=== PATIENT | male | born 1980 | race Caucasian/White ===

== ENCOUNTER 2020-02-13 20:50 | Emergency (ER) | payer OTHER ==
[2020-02-13] MEDS ORDERED: KETOROLAC 30 MG/ML INJ ONE (21:58)
[2020-02-13] MEDS ORDERED: ONDANSETRON 4 MG/2 ML VIAL ONE (21:58)
[2020-02-13] MEDS ORDERED: NA CHLORIDE 0.9% 1,000 ML ONE (21:59)
[2020-02-13 22:01] LABS: Absolute Lymphocytes (CBC) 2.3 K/uL (0.7-4.9); Hematocrit 43.4 % (39.6-49.0); Lymphocytes % 26.4 % (15.3-44.8); MPV 8.2 fL (7.6-11.3); RBC Red Blood Cell Count 5.42 M/uL (4.33-5.43)
--- NOTE | 2020-02-13 22:02 | RAD REPORT ---
EXAM DESCRIPTION: CT - Head Brain Wo Cont - 02/13/2020 9:55 pm CLINICAL HISTORY: Headache COMPARISON: None. TECHNIQUE: Computed axial tomography of the head was obtained. Unenhanced and enhanced images obtain ed. 50 cc Isovue-[address] scans are performed using dose optimization technique as appropriate and may include automated exposure control or mA/KV adjustment according to patient size. FINDINGS: An intracranial bleed is not seen . The ventricles are normal in caliber. No extra-axial fluid collection is noted. No abnormal enhancement seen Fluid within the sinuses/ mastoids is not seen. IMPRESSION: No acute intracranial abnormality is seen. If patient's symptoms persist MRI of the bra in would be recommended.
[2020-02-13 22:17] LABS: Albumin 3.8 g/dL (3.4-5.0); Bilirubin Total 0.2 mg/dL (0.2-1.0); C-Reactive Protein 8.41 mg/L (<3.00); Potassium 3.6 mmol/L (3.5-5.1); Protein, Total 7.6 g/dL (6.4-8.2)
--- NOTE | 2020-02-13 22:34 | ER ---
Nurse's Notes [facility] Name: Richard Freitas Age: 40 yrs Sex: Male : 1980 Arrival Date: 02/13/2020 Time: 20:54 Bed 20 Private MD: Diagnosis: Headache;Essential (primary) hypertension Presentation: 02/12 21:13 Chief complaint: Patient states: Right sided GARZA since Monday getting progressively ll1 worse. Slight nasal congestion. Has been taking allergy medicine, hasn't helped much. Coronavirus screen: Proceed with normal triage. Patient denies a cough. Patient denies shortness of breath or difficulty breathing. Patient denies measured and/or subjective temperature greater than 100.4F prior to today's visit. Patient denies travel on a cruise ship or to a country the [facility] currently lists as an affected area. Patient denies contact with known and/or suspected case of COVID-19. Ebola Screen: Patient denies travel to an Ebola-affected area in the 21 days before illness onset. Initial Sepsis Screen: Does the patient meet any 2 criteria? No. Patient's initial sepsis screen is negative. Risk Assessment: Do you want to hurt yourself or someone else? Patient reports no desire to harm self or others. Onset of symptoms was February 11, 2020. 21:13 Method Of Arrival: Ambulatory ll1 21:13 Acuity: PRABHJOT 3 ll1 22:00 Initial Sepsis Screen: Does the patient have a suspected source of infection? No. vc Patient's initial sepsis screen is negative. Triage Assessment: 22:00 Headache History: The patient has had previous headaches and this one is more severe vc than previous episodes. General: Appears in no apparent distress. uncomfortable, Behavior is calm, cooperative, appropriate for age. Pain: Also complains of photophobia. Pain: Complains of pain in right eye and right hoahaoism. Historical: - Allergies: 21:15 PENICILLINS; ll1 - PMHx: 21:15 Hypertension; ll1 - PSHx: 21:15 None; ll1 - Immunization history:: Adult Immunizations up to date. - Social history:: Smoking status: Patient denies any tobacco usage or history of. Patient/guardian denies using alcohol, street drugs, tobacco products. - Family history:: not pertinent. Screenin:23 Abuse screen: Denies threats or abuse. Nutritional screening: No deficits noted. Tuberculosis screening: No symptoms or risk factors identified. Fall Risk None identified. Assessment: 21:20 General: Appears in no apparent distress. Behavior is calm, cooperative. Pain: Complains of pain in forehead and right hoahaoism Pain does not radiate. Pain currently is 4 out of 10 on a pain scale. Quality of pain is described as dull, sharp, Pain began 2-3 days ago. Is continuous, Alleviated by nothing. Aggravated by looking down. Neuro: Level of Consciousness is awake, alert, Oriented to person, place, time, situation, Geneticist are equal bilaterally Moves all extremities. Speech is normal, Facial symmetry appears normal. Cardiovascular: Heart tones S1 S2 present Capillary refill < 3 seconds Patient's skin is warm and dry. Respiratory: Airway is patent Respiratory effort is even, unlabored, Respiratory pattern is regular, symmetrical, Breath sounds are clear. GI: No signs and/or symptoms were reported involving the gastrointestinal system. : No signs and/or symptoms were reported regarding the genitourinary system. EENT: No signs and/or symptoms were reported regarding the EENT system. Denies blurred vision nasal congestion, nasal discharge. Derm: No signs and/or symptoms reported regarding the dermatologic system. Musculoskeletal: No signs and/or symptoms reported regarding the musculoskeletal system. 22:12 Reassessment: Patient appears in no apparent distress at this time. Patient and/or vc family updated on plan of care and expected duration. Pain level reassessed. 22:56 Reassessment: Patient appears in no apparent distress at this time. Patient and/or vc family updated on plan of care and expected duration. Pain level reassessed. Patient states feeling better. Patient states symptoms have improved. Vital Signs: 21:13 BP 153 / 104; Pulse 89; Resp 18; Pulse Ox 96% ; Pain 4/10; ll1 22:00 BP 145 / 106; Pulse 70; Resp 18; Pulse Ox 95% on R/A; vc 22:59 BP 140 / 94; Pulse 72; Resp 16; Pulse Ox 95% on R/A; vc ED Course: 20:54 Patient arrived in ED. cl3 21:07 Edmond Worthy MD is Attending Physician. dary 21:12 Soco Wadsworth, RN is Primary Nurse. 21:15 Triage completed. ll1 21:16 Arm band placed on Patient placed in an exam room, on a stretcher. ll1 21:23 Patient has correct armband on for positive identification. Bed in low position. Call light in reach. 21:40 Inserted saline lock: 20 gauge in right antecubital area, using aseptic technique. vc 21:53 CT Head Brain wo Cont In Process Unspecified. EDMS 22:12 Primary Nurse role handed off by Soco Wadsworth, RN vc 22:12 Radha Lr RN is Primary Nurse. vc 22:33 Marcos Ferrer MD is Referral Physician. dary 22:55 No provider procedures requiring assistance completed. vc 23:08 IV discontinued, intact, bleeding controlled, No redness/swelling at site. Pressure vc dressing applied. Administered Medications: 22:10 Drug: Zofran (Ondansetron) 4 mg Route: IVP; Site: right antecubital; vc 22:54 Follow up: Response: No adverse reaction vc 22:11 Drug: NS 0.9% 1000 ml Route: IV; Rate: 1 bolus; Site: right antecubital; vc 23:10 Follow up: IV Status: Completed infusion; IV Intake: 1000ml vc 22:11 Drug: TORadol 30 mg Route: IVP; Site: right antecubital; vc 22:54 Follow up: Response: No adverse reaction; Pain is decreased vc Intake: 23:10 IV: 1000ml; Total: 1000ml. vc Outcome: 22:33 Discharge ordered by . dary 22:59 Condition: good vc 23:08 Discharge instructions given to patient, Instructed on discharge instructions, follow vc up and referral plans. no drinking with medication, no driving heavy equipment, medication usage, Demonstrated understanding of instructions, follow-up care, medications, Prescriptions given X 2. 23:09 Discharged to home ambulatory. vc 23:09 Patient left the ED. vc Signatures: Dispatcher [employer] ROCKYSD Edmond Worthy MD MD cha Lewis, Charde cl3 Radah Lr, SADIA MCCULLOUGH vc Soco Wadsworth RN RN ah Lewis, Lynsay, RN RN ll1
--- NOTE | 2020-02-13 22:35 | EDPHYS ---
Physician Documentation [facility] Name: Richard Freitas Age: 40 yrs Sex: Male : 1980 Arrival Date: 02/13/2020 Time: 20:54 Bed 20 Private MD: ED Physician Edmond Worthy HPI: 02/12 21:36 This 40 yrs old Male presents to ER via Ambulatory with complaints of dary Headache. 21:36 The patient complains of pain to the right eye and right baptist. The patient describes dary the headache as constant, throbbing. Onset: The symptoms/episode began/occurred 2 day(s) ago. Associated signs and symptoms: The patient has no apparent associated signs or symptoms. Severity of symptoms: At its worst the pain was moderate, in the emergency department the pain is actually worse. Headache History: Denies prior headaches. The symptoms are alleviated by nothing. the symptoms are aggravated by nothing. The patient has not experienced similar symptoms in the past. Historical: - Allergies: 21:15 PENICILLINS; ll1 - PMHx: 21:15 Hypertension; ll1 - PSHx: 21:15 None; ll1 - Immunization history:: Adult Immunizations up to date. - Social history:: Smoking status: Patient denies any tobacco usage or history of. Patient/guardian denies using alcohol, street drugs, tobacco products. - Family history:: not pertinent. ROS: 21:36 Constitutional: Negative for fever, chills, and weight loss, Eyes: Negative for injury, dary pain, redness, and discharge, ENT: Negative for injury, pain, and discharge, Neck: Negative for injury, pain, and swelling, Cardiovascular: Negative for chest pain, palpitations, and edema, Respiratory: Negative for shortness of breath, cough, wheezing, and pleuritic chest pain, Abdomen/GI: Negative for abdominal pain, nausea, vomiting, diarrhea, and constipation, Back: Negative for injury and pain, : Negative for injury, bleeding, discharge, and swelling, MS/Extremity: Negative for injury and deformity, Skin: Negative for injury, rash, and discoloration, Psych: Negative for depression, anxiety, suicide ideation, homicidal ideation, and hallucinations, Allergy/Immunology: Negative for hives, rash, and allergies, Endocrine: Negative for neck swelling, polydipsia, polyuria, polyphagia, and marked weight changes, Hematologic/Lymphatic: Negative for swollen nodes, abnormal bleeding, and unusual bruising. 21:36 Neuro: Positive for headache, of the right eye and face and right baptist. Exam: 21:36 Constitutional: This is a well developed, well nourished patient who is awake, alert, dary and in no acute distress. Head/Face: Normocephalic, atraumatic. Eyes: Pupils equal round and reactive to light, extra-ocular motions intact. Lids and lashes normal. Conjunctiva and sclera are non-icteric and not injected. Cornea within normal limits. Periorbital areas with no swelling, redness, or edema. ENT: Nares patent. No nasal discharge, no septal abnormalities noted. Tympanic membranes are normal and external auditory canals are clear. Oropharynx with no redness, swelling, or masses, exudates, or evidence of obstruction, uvula midline. Mucous membranes moist. Neck: Trachea midline, no thyromegaly or masses palpated, and no cervical lymphadenopathy. Supple, full range of motion without nuchal rigidity, or vertebral point tenderness. No Meningismus. Chest/axilla: Normal chest wall appearance and motion. Nontender with no deformity. No lesions are appreciated. Cardiovascular: Regular rate and rhythm with a normal S1 and S2. No gallops, murmurs, or rubs. Normal PMI, no JVD. No pulse deficits. Respiratory: Lungs have equal breath sounds bilaterally, clear to auscultation and percussion. No rales, rhonchi or wheezes noted. No increased work of breathing, no retractions or nasal flaring. Abdomen/GI: Soft, non-tender, with normal bowel sounds. No distension or tympany. No guarding or rebound. No evidence of tenderness throughout. Back: No spinal tenderness. No costovertebral tenderness. Full range of motion. Male : Normal genitalia with no discharge or lesions. Skin: Warm, dry with normal turgor. Normal color with no rashes, no lesions, and no evidence of cellulitis. MS/ Extremity: Pulses equal, no cyanosis. Neurovascular intact. Full, normal range of motion. Neuro: Awake and alert, GCS 15, oriented to person, place, time, and situation. Cranial nerves II-XII grossly intact. Motor strength 5/5 in all extremities. Sensory grossly intact. Cerebellar exam normal. Normal gait. Psych: Awake, alert, with orientation to person, place and time. Behavior, mood, and affect are within normal limits. 21:40 Eyes: Periorbital structures: appear normal, no acute changes, Pupils: no acute dary changes, equal, round, and reactive to light and accomodation, Extraocular movements: no acute changes, Conjunctiva: normal, no acute changes, Corneas: are normal, Sclera: no appreciated abnormality, Anterior chamber: normal, no acute changes, Lids and lashes: appear normal, no acute changes, Visual hayes: are intact, no acute changes, Nystagmus: is not appreciated. 21:40 Neck: ROM/movement: is normal, no acute changes, limited range of motion, is not appreciated, Meningeal signs: are not present, Kernig's sign is negative, Brudzinski's sign is negative. 22:32 Skin: Appearance: normal except for affected area, Color: normal in color, Temperature: [facility] normal temperature, Moisture: normal moisture, petechiae, not noted, ecchymosis, not noted, flushing, not noted, diaphoresis is not appreciated, swelling, is not appreciated, no rash present. Vital Signs: 21:13 BP 153 / 104; Pulse 89; Resp 18; Pulse Ox 96% ; Pain 4/10; ll1 22:00 BP 145 / 106; Pulse 70; Resp 18; Pulse Ox 95% on R/A; vc 22:59 BP 140 / 94; Pulse 72; Resp 16; Pulse Ox 95% on R/A; vc MDM: 21:08 Patient medically screened. [facility] 21:37 Data reviewed: vital signs, nurses notes, lab test result(s), radiologic studies, CT dary scan. 21:40 Differential diagnosis: herpes zoster, migraine, sinusitis, temporal arteritis, dary trigeminal neuralgia. ED course: ct head ordered , sever headache , right baptist, no vision changes, no hx of headaches. 22:32 ED course: much improved, all test explained , knows follow with dr melissa is dary recomended. 02/12 21:35 Order name: CBC with Diff; Complete Time: 22:31 [facility] 02/12 21:35 Order name: Comprehensive Metabolic Panel; Complete Time: 22:31 [facility] 02/12 21:35 Order name: CT Head Brain wo Cont; Complete Time: 22:31 [facility] 02/12 21:35 Order name: Sed Rate; Complete Time: 22:31 [facility] 02/12 21:36 Order name: CRP; Complete Time: : [facility] Administered Medications: 22:10 Drug: Zofran (Ondansetron) 4 mg Route: IVP; Site: right antecubital; vc 22:54 Follow up: Response: No adverse reaction vc 22:11 Drug: NS 0.9% 1000 ml Route: IV; Rate: 1 bolus; Site: right antecubital; vc 23:10 Follow up: IV Status: Completed infusion; IV Intake: 1000ml vc 22:11 Drug: TORadol 30 mg Route: IVP; Site: right antecubital; vc 22:54 Follow up: Response: No adverse reaction; Pain is decreased vc Disposition: 02/13/20 22:33 Discharged to Home. Impression: Headache, Essential (primary) hypertension. - Condition is Stable. - Discharge Instructions: General Headache Without Cause, Hypertension, Hypertension, [id number], General Headache Without Cause, [id number], Managing Your Hypertension. - Prescriptions for Fioricet with Codeine 50- 325-40-30 mg Oral capsule - take 1 capsule by ORAL route every 4 hours as needed not to exceed 6 capsules per 24hrs; 24 capsule. Zofran 4 mg Oral Tablet - take 1 tablet by ORAL route every 12 hours As needed; 20 tablet. - Medication Reconciliation Form, Thank You Letter, Antibiotic Education, Prescription Opioid Use, Work release form form. - Follow up: Private Physician; When: 2 - 3 days; Reason: Recheck today's complaints, Continuance of care, Re-evaluation by your physician. Follow up: Marcos Melissa; When: 2 - 3 days; Reason: Recheck today's complaints, Re-evaluation by your physician. - Problem is new. - Symptoms have improved. Signatures: Dispatcher [employer] EDMS Edmond Worthy MD MD cha Calcote, Vanessa, RN RN Paulino Grajeda RN RN ll1 Corrections: (The following items were deleted from the chart) 22:34 22:33 02/13/2020 22:33 Discharged to Home. Impression: Headache. Condition is Stable. [facility] Discharge Instructions: General Headache Without Cause, General Headache Without Cause, Vltx-[id number]. Prescriptions for Fioricet with Codeine 92-207-88-30 mg Oral capsule - take 1 capsule by ORAL route every 4 hours as needed not to exceed 6 capsules per 24hrs; 24 capsule, Zofran 4 mg Oral Tablet - take 1 tablet by ORAL route every 12 hours As needed; 20 tablet. and Forms are Medication Reconciliation Form, Thank You Letter, Antibiotic Education, Prescription Opioid Use. Follow up: Private Physician; When: 2 - 3 days; Reason: Recheck today's complaints, Continuance of care, Re-evaluation by your physician. Follow up: Marcos Melissa; When: 2 - 3 days; Reason: Recheck today's complaints, Re-evaluation by your physician. Problem is new. Symptoms have improved. dary 23:09 22:34 02/13/2020 22:33 Discharged to Home. Impression: Headache; Essential (primary) vc hypertension. Condition is Stable. Discharge Instructions: General Headache Without Cause, General Headache Without Cause, Mxhm-[id number]. Prescriptions for Fioricet with Codeine [id number] mg Oral capsule - take 1 capsule by ORAL route every 4 hours as needed not to exceed 6 capsules per 24hrs; 24 capsule, Zofran 4 mg Oral Tablet - take 1 tablet by ORAL route every 12 hours As needed; 20 tablet. and Forms are Medication Reconciliation Form, Thank You Letter, Antibiotic Education, Prescription Opioid Use. Follow up: Private Physician; When: 2 - 3 days; Reason: Recheck today's complaints, Continuance of care, Re-evaluation by your physician. Follow up: Marcos Melissa; When: 2 - 3 days; Reason: Recheck today's complaints, Re-evaluation by your physician. Problem is new. Symptoms have improved. dary
[2020-02-13 23:18] VITALS: O2SAT 95
[2020-02-13 23:19] VITALS: BP 140/94
== END 2020-02-13 23:09 | disposition home or self-care (01) ==
LOC: ER 20:50
DX: I10 Essential (primary) hypertension (principal); Z88.0 Allergy status to penicillin
CPT/HCPCS: 96361; 85025; 36415; 85652; 80053; 86140; 70450; 96375; 96374; 99284; J7030; J2405

== ENCOUNTER 2022-11-03 11:42 | Emergency (ER) | payer BC ==
--- OUTSIDE RECORDS SUMMARY | 2022-11-03 11:46 | XMS REPORT | Continuity of Care Document ---
:1980 Author Organization [facility] t Address [address] Mike [address] [place] [id number] Care Team Providers Name Role Phone Unavailable Unavailable Unavailable Payers Payer Name Policy Type Policy Number Effective Date Expiration Date S ource [employer]ET[employer] C1 [id number] [facility] [employer] C1 [id number] [facility] [employer] C1 [id number] [facility] Problems This patient has no known problems. Allergies, Adverse Reactions, Alerts Allergy Allergy Status Severity Reaction(s) Onset Inactive Treating Comm ents Source Name Type Date Date Clinician bacitrac bacitrac Active Unknown Commo n in in [facility] Social History Social Habit Start Date Stop Date Quantity Comments Source Sex Assigned At Com mon [facility] History of Tobacco Use Co mmon [facility] Smoking Status Start Date Stop Date Source Never Smoker [facility] Medications Ordered Filled Start Stop Current Ordering Indication Dosage Frequency Signature Comments Components Source Medication Medication Date Date Medication? Clinician (SIG) Name Name Meloxicam Meloxicam 2020- No 1{table QD Meloxicam Common 7.5 MG 7.5 MG 04-01 t} 7.5 MG [facility] 00:00: 00:00 - [facility] 00 :00 [facility] Lisinopril- Lisinopril- No Lisinopril Common hydroCHLORO hydroCHLORO -hydroCHLO [facility] thiazide thiazide ROthiazide [facility] Azithromyci Azithromyci No Azithromyc Common n n in [facility] Azithromyci Azithromyci No Azithromyc n n in Meloxicam Meloxicam No 1{table QD Meloxicam 7.5 MG 7.5 MG t} 7.5 MG Lisinopril- Lisinopril- No Lisinopril hydroCHLORO hydroCHLORO -hydroCHLO thiazide thiazide ROthiazide Azithromyci Azithromyci No Azithromyc n n in Meloxicam Meloxicam No 1{table QD Meloxicam 7.5 MG 7.5 MG t} 7.5 MG Lisinopril- Lisinopril- No Lisinopril hydroCHLORO hydroCHLORO -hydroCHLO thiazide thiazide ROthiazide Vital Signs Vital Name Observation Time Observation Value Comments Source height 2021-04-01 14:30:00 70 [in_i] [facility] weight 2021-04-01 14:30:00 249.4 [lb_av] [facility] temperature 2021-04-01 14:30:00 97.3 [degF] [facility] bmi 2021-04-01 14:30:00 35.78 kg/m2 [facility] blood pressure 2021-04-01 14:30:00 118 mm[Hg] [facility] - systolic [facility] blood pressure 2021-04-01 14:30:00 82 mm[Hg] Common [facility] - diastolic [facility] Procedures This patient has no known procedures. Encounters Start End Encounter Admission Attending Care Care Encounter Source Date/Time Date/Time Type Type Clinicians Facility Department ID 2021-11-24 Outpatient [facility] [id number] Common 13:10:34 [id number] [facility] 2021-09-03 2021-09-03 (TEL) [facility] ST[facility] [id number] Co mmon 00:00:00 00:00:00 [facility] 2021-04-29 2021-04-29 (TEL) STLMLC STL[facility] [id number] Co mmon 00:00:00 00:00:00 [facility] 2021-04-01 2021-04-01 OFFICE [facility] [id number] Co mmon 00:00:00 00:00:00 VISIT [facility] PT LEVEL 3 - [facility] Results This patient has no known results.
[2022-11-03] MEDS ORDERED: MORPHINE 4 MG/ML SYR ONE (12:25)
[2022-11-03] MEDS ORDERED: ONDANSETRON 4 MG/2 ML VIAL ONE (12:25)
[2022-11-03] MEDS ORDERED: Ringers Lactate 1,000 ML IV ONE (12:25)
[2022-11-03 12:48] LABS: Absolute Lymphocytes (CBC) 1.1 K/uL (0.7-4.9); Hematocrit 39.3 % (39.6-49.0); MCV 83.8 fL (80-100); MPV 7.7 fL (7.6-11.3); RBC Red Blood Cell Count 4.69 M/uL (4.33-5.43)
[2022-11-03 13:02] LABS: Albumin 3.9 g/dL (3.4-5.0); Bilirubin Total 0.7 mg/dL (0.2-1.0); Potassium 3.5 mmol/L (3.5-5.1); Protein, Total 7.3 g/dL (6.4-8.2)
--- NOTE | 2022-11-03 13:40 | RAD REPORT ---
EXAM DESCRIPTION: CTAbdomen Pelvis W Contrast - 11/03/2022 1:29 pm CLINICAL HISTORY: Abdominal pain. abdominal pain COMPARISON: No comparisons TECHNIQUE: Biphasic CT imaging of the abdomen and pelvis was performed with 100 ml non-ionic IV cont rast. All CT scans are performed using dose optimization technique as appropriate and may include automated exposure control or mA/KV adjustment according to patient size. FINDINGS: The lung bases are clear. The liver contains several small hypodensities likely small benign cyst. No aggressive hepatic lesion identified. No intra or extrahepatic biliary dilatation. The spleen, pancreas, adrenal glands and ki dneys are within normal limits. No bowel obstruction, free air, free fluid or abscess. Moderate retained stool is present throughout the colon. Numerous fluid-filled small bowel loops are present. Small amount of free fluid is seen in the pelvis and right lower quadrant. Normal appendix. No evidence of significant lymphadenopathy. No suspicious bony findings. IMPRESSION: Numerous fluid-filled small bowel loops are present which could indicate a gastroenterit is. Trace free fluid is seen in the right lower quadrant and pelvis.
--- NOTE | 2022-11-03 14:14 | RAD REPORT ---
EXAM DESCRIPTION: US - Abdomen Exam Limited - 11/03/2022 1:55 pm CLINICAL HISTORY: abdominal pain COMPARISON: No comparisons FINDINGS: The gallbladder demonstrates no gallstones. 3 mm gallbladder polyp suspected. No perichole cystic fluid or gallbladder wall thickening. The common bile duct is normal measuring 3 mm. The liver demonstrates no findings of intrahepatic biliary dilatation. IMPRESSION: No acute or worrisome abnormality.
[2022-11-03] MEDS ORDERED: DICYCLOMINE HCL 20 MG/2 ML AMP IM ONE (14:40)
--- NOTE | 2022-11-03 15:35 | ER ---
Nurse's Notes [facility] Name: Richard Freitas Age: 42 yrs Sex: Male : 1980 Arrival Date: 11/03/2022 Time: 11:46 Bed 30 Private MD: Diagnosis: Abdominal pain, Generalized Presentation: 11/03 12:07 Coronavirus screen: Vaccine status: Patient reports receiving the 2nd dose of the covid ll1 vaccine. Client denies travel out of the [place] in the last 14 days. At this time, the client does not indicate any symptoms associated with coronavirus-19. Ebola Screen: Patient denies travel to an Ebola-affected area in the 21 days before illness onset. Initial Sepsis Screen: Does the patient meet any 2 criteria? No. Patient's initial sepsis screen is negative. Does the patient have a suspected source of infection? Yes: Acute abdominal pain. Risk Assessment: Do you want to hurt yourself or someone else? Patient reports no desire to harm self or others. Onset of symptoms was November 02, 2022. 12:07 Method Of Arrival: Ambulatory ll1 12:07 Acuity: PRABHJOT 3 ll1 12:11 Chief complaint: Patient states: Generalized abd pain since last night. Hasn't urinated ll1 today although drinking fluids. No fever. Historical: - Allergies: 12:07 PENICILLINS; ll1 - PMHx: 12:07 Hypertension; ll1 - PSHx: 12:07 None; ll1 - Immunization history:: Client reports receiving the 2nd dose of the Covid vaccine. - Social history:: Smoking status: Patient denies any tobacco usage or history of. Screenin:40 [facility] ED Fall Risk Assessment (Adult) History of falling in the last 3 months, em6 including since admission No falls in past 3 months (0 pts) Confusion or Disorientation No (0 pts) Intoxicated or Sedated No (0 pts) Impaired Gait No (0 pts) Mobility Assist Device Used No (0 pt) Altered Elimination No (0 pt) Score/Fall Risk Level 0 - 2 = Low Risk Oriented to surroundings, Maintained a safe environment, Educated pt \T\ family on fall prevention, incl call for assistance when getting out of bed, Assessed \T\ reinforced patient's understanding of fall precautions, Provided non-skid footwear, Hourly rounding (assess needs \T\ fall precautionary measures) done, Used ambulatory aids as needed (educated on \T\ assisted with), Used gait belt as appropriate. Abuse screen: Denies threats or abuse. Nutritional screening: No deficits noted. Tuberculosis screening: No symptoms or risk factors identified. Assessment: 12:40 General: Appears in no apparent distress. Behavior is cooperative. Pain: Complains of em6 pain in abdomen Pain does not radiate. Pain currently is 7 out of 10 on a pain scale. Quality of pain is described as sharp. Neuro: Level of Consciousness is awake, alert, obeys commands, Oriented to person, place, time, situation. Cardiovascular: Patient's skin is warm and dry. Respiratory: Airway is patent Respiratory effort is even, unlabored, Respiratory pattern is regular, symmetrical. GI: Abdomen is non-distended, Bowel sounds present X 4 quads. Abd is soft and non tender X 4 quads. : No signs and/or symptoms were reported regarding the genitourinary system. EENT: No signs and/or symptoms were reported regarding the EENT system. Derm: No signs and/or symptoms reported regarding the dermatologic system. Musculoskeletal: Circulation, motion, and sensation intact. Range of motion: intact in all extremities. 14:10 Reassessment: Patient appears in no apparent distress at this time. No changes from em6 previously documented assessment. Patient and/or family updated on plan of care and expected duration. Pain level reassessed. Patient is alert, oriented x 3, equal unlabored respirations, skin warm/dry/pink. 15:10 Reassessment: Patient appears in no apparent distress at this time. No changes from em6 previously documented assessment. Patient and/or family updated on plan of care and expected duration. Pain level reassessed. Patient is alert, oriented x 3, equal unlabored respirations, skin warm/dry/pink. Vital Signs: 12:07 BP 139 / 99; Pulse 63; Resp 18; Temp 97.9; Pulse Ox 100% ; Weight 86.18 kg; Height 5 ll1 ft. 10 in. (177.80 cm); Pain 8/10; 13:57 BP 149 / 95; Pulse 55; Resp 16; Pulse Ox 100% on R/A; em6 15:32 BP 138 / 88; Pulse 58; Resp 16; Pulse Ox 100% on R/A; em6 12:07 Body Mass Index 27.26 (86.18 kg, 177.80 cm) ll1 ED Course: 11:46 Patient arrived in ED. rg4 11:49 Esau Mcwilliams PA is PHCP. jmm 11:49 Live Melendez DO is Attending Physician. jmm 12:07 Arm band placed on. ll1 12:08 Triage completed. ll1 12:19 Racquel Whitney, RN is Primary Nurse. em6 12:40 Bed in low position. Call light in reach. Side rails up X 1. Pulse ox on. NIBP on. Warm em6 blanket given. 12:40 Inserted saline lock: 20 gauge in left antecubital area, using aseptic technique. Blood em6 collected. 13:31 CT Abd/Pelvis - IV Contrast Only In Process Unspecified. EDMS 13:51 Inserted saline lock: 20 gauge in right antecubital area, using aseptic technique. mb9 13:52 IV discontinued, intact, bleeding controlled, No redness/swelling at site. Pressure mb9 dressing applied. 13:57 Abdomen Limited US In Process Unspecified. EDMS 15:54 No provider procedures requiring assistance completed. IV discontinued, intact, em6 bleeding controlled, No redness/swelling at site. Pressure dressing applied. Administered Medications: 12:40 Drug: Zofran (Ondansetron) 4 mg Route: IVP; Site: left antecubital; em6 13:20 Follow up: Response: No adverse reaction em6 12:40 Drug: morphine 4 mg Route: IVP; Infused Over: 4 mins; Site: left antecubital; em6 13:20 Follow up: Response: No adverse reaction; RASS: Alert and Calm (0) em6 12:40 Drug: Lactated Ringers Solution 1000 ml Route: IV; Rate: 1000 bolus; Site: left em6 antecubital; 14:15 Follow up: Response: No adverse reaction; IV Status: Completed infusion; IV Intake: em6 1000ml 14:43 Drug: Dicyclomine 20 mg Route: IM; Site: right deltoid; em6 15:32 Follow up: Response: No adverse reaction em6 Medication: 15:55 VIS not applicable for this client. em6 Intake: 14:15 IV: 1000ml; Total: 1000ml. em6 Outcome: 15:35 Discharge ordered by MD. linn 15:55 Discharged to home ambulatory. em6 15:55 Condition: stable 15:55 Discharge instructions given to patient, Instructed on discharge instructions, follow up and referral plans. medication usage, Demonstrated understanding of instructions, follow-up care, medications, Prescriptions given X 3. 15:55 Patient left the ED. em6 Signatures: Dispatcher [employer] EDMS Esau Mcwilliams PA PA jmm Garcia, Rubi rg4 Paulino Leon RN RN ll1 Racquel Whitney RN RN em6 Lulu Hyatt RN RN mb9
--- NOTE | 2022-11-03 15:35 | EDPHYS ---
Physician Documentation [facility] Name: Richard Freitas Age: 42 yrs Sex: Male : 1980 Arrival Date: 11/03/2022 Time: 11:46 Bed 30 Private MD: ED Physician Live Melendez HPI: 11/03 15:32 This 42 yrs old Male presents to ER via Ambulatory with complaints of Abdominal Pain. jmm 15:32 The patient presents with abdominal pain. Onset: The symptoms/episode began/occurred jmm gradually. The symptoms do not radiate. Is a 42-year-old male with history of hypertension the presents emerged part with complaints of epigastric and right upper quadrant abdominal pain beginning last night. Denies any vomiting or diarrhea. Denies fever. Denies any previous bowel issues.. Historical: - Allergies: 12:07 PENICILLINS; ll1 - PMHx: 12:07 Hypertension; ll1 - PSHx: 12:07 None; ll1 - Immunization history:: Client reports receiving the 2nd dose of the Covid vaccine. - Social history:: Smoking status: Patient denies any tobacco usage or history of. ROS: 15:32 Constitutional: Negative for fever, chills, and weight loss, Cardiovascular: Negative jmm for chest pain, palpitations, and edema, Respiratory: Negative for shortness of breath, cough, wheezing, and pleuritic chest pain. 15:32 Abdomen/GI: Positive for abdominal pain. 15:32 All other systems are negative. Exam: 15:32 Constitutional: This is a well developed, well nourished patient who is awake, alert, jmm and in no acute distress. Head/Face: atraumatic. Eyes: EOMI, no conjunctival erythema appreciated ENT: Moist Mucus Membranes Neck: Trachea midline, Supple Chest/axilla: Normal chest wall appearance and motion. Cardiovascular: Regular rate and rhythm. No edema appreciated Respiratory: Normal respirations, no respiratory distress appreciated 15:32 Back: Normal ROM Skin: General appearance color normal MS/ Extremity: Moves all extremities, no obvious deformities appreciated, no edema noted to the lower extremities Neuro: Awake and alert Psych: Behavior is normal, Mood is normal, Patient is cooperative and pleasant 15:32 Abdomen/GI: Inspection: abdomen appears normal, Bowel sounds: normal, Palpation: soft, mild abdominal tenderness, in the epigastric area, right upper quadrant and left upper quadrant. Vital Signs: 12:07 BP 139 / 99; Pulse 63; Resp 18; Temp 97.9; Pulse Ox 100% ; Weight 86.18 kg; Height 5 ll1 ft. 10 in. (177.80 cm); Pain 8/10; 13:57 BP 149 / 95; Pulse 55; Resp 16; Pulse Ox 100% on R/A; em6 15:32 BP 138 / 88; Pulse 58; Resp 16; Pulse Ox 100% on R/A; em6 12:07 Body Mass Index 27.26 (86.18 kg, 177.80 cm) ll1 MDM: 12:15 Patient medically screened. [facility] 15:33 Data reviewed: vital signs, nurses notes. Counseling: I had a detailed discussion with [facility] the patient and/or guardian regarding: the historical points, exam findings, and any diagnostic results supporting the discharge/admit diagnosis, lab results, radiology results, the need for outpatient follow up, to return to the emergency department if symptoms worsen or persist or if there are any questions or concerns that arise at home. ED course: Pain is partially relieved in the ED ED. Patient is able to tolerate p.o. Patient vies follow-up PCP and otherwise given strict return precautions. Patient understood agrees plan of care.. 11/03 12:16 Order name: CBC with Diff; Complete Time: 13:01 [facility] 11/03 12:16 Order name: CMP; Complete Time: 13:12 [facility] 11/03 12:16 Order name: Lipase; Complete Time: 13:12 [facility] 11/03 12:16 Order name: Abdomen Limited US; Complete Time: 14:15 [facility] 11/03 12:16 Order name: CT Abd/Pelvis - IV Contrast Only; Complete Time: 13:42 [facility] 11/03 12:16 Order name: IV Saline Lock; Complete Time: 12:51 [facility] 11/03 12:16 Order name: Labs collected and sent; Complete Time: 12:51 [facility] Administered Medications: 12:40 Drug: Zofran (Ondansetron) 4 mg Route: IVP; Site: left antecubital; em6 13:20 Follow up: Response: No adverse reaction em6 12:40 Drug: morphine 4 mg Route: IVP; Infused Over: 4 mins; Site: left antecubital; em6 13:20 Follow up: Response: No adverse reaction; RASS: Alert and Calm (0) em6 12:40 Drug: Lactated Ringers Solution 1000 ml Route: IV; Rate: 1000 bolus; Site: left em6 antecubital; 14:15 Follow up: Response: No adverse reaction; IV Status: Completed infusion; IV Intake: em6 1000ml 14:43 Drug: Dicyclomine 20 mg Route: IM; Site: right deltoid; em6 15:32 Follow up: Response: No adverse reaction em6 Disposition: 16:41 Co-signature as Attending Physician, Live Melendez DO I was immediately available on-site ms3 in the Emergency Department for consultation in the care of the patient. Disposition Summary: 11/03/22 15:35 Discharge Ordered Location: Home [facility] Condition: Stable jmm Diagnosis - Abdominal pain, Generalized jmm Followup: jm - With: Private Physician - When: As needed - Reason: Recheck today's complaints, Continuance of care, Re-evaluation by your physician Discharge Instructions: - Discharge Summary Sheet [facility] - Abdominal Pain, Adult jmm - Clear Liquid Diet, Adult [facility] Forms: - Medication Reconciliation Form [facility] - Thank You Letter [facility] - Antibiotic Education [facility] - Prescription Opioid Use [facility] - Work release form [facility] Prescriptions: - Pepcid 20 mg Oral Tablet - take 1 tablet by ORAL route once daily; 20 tablet; Refills: 0, Product [facility] Selection Permitted - dicyclomine 20 mg Oral Tablet - take 1 tablet by ORAL route 4 times per day; 30 tablet; Refills: 0, Product [facility] Selection Permitted - ondansetron 4 mg Oral - take 4 milligrams by SUBLINGUAL route every 8 hours; 15 tablet; Refills: 0, [facility] Product Selection Permitted Signatures: Dispatcher [employer] Esau Freedman PA PA jmm Lewis, Lynsay, RN RN ll1 Live Melendez DO DO ms3 Racquel Whitney RN RN em6
[2022-11-03 16:19] VITALS: TEMP 97.9; O2SAT 100
[2022-11-03 16:31] VITALS: BP 138/88
== END 2022-11-03 15:55 | disposition home or self-care (01) ==
LOC: ER 11:42
DX: R10.84 Generalized abdominal pain (principal); Z88.0 Allergy status to penicillin
CPT/HCPCS: 96361; 85025; 36415; 83690; 80053; 74177; 76705; 96375; 96372; 96374; 99284; Q9967; J0500; J7120; J2405